=== PATIENT | female | born 2005 | race Caucasian/White ===

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

== ENCOUNTER 2024-01-25 10:50 | Emergency (ER) | payer OTHER, SELFPAY ==
[2024-01-25 10:58] VITALS: BP 110/66; PULSE 97; RESP 16; TEMP 36.3; O2SAT 100
--- NOTE | 2024-01-25 11:17 | ED.URI ---
HPI - URI/Sore Throat General Chief Complaint: Upper Respiratory Infection Stated Complaint: Sore Throat Time Seen by Provider: 01/25/24 11:18 Source: patient, RN notes reviewed and old records reviewed Mode of arrival: ambulatory Limitations: no limitations History of Present Illness HPI Narrative: 18 year old female who presents to [facility] with complaints of sore throat starting Thursday with increased pain today. Patient states she has taken ibuprofen and NyQuil for her symptoms without improvement. Patient reports that she was treated in October for cellulitis of her tonsil with antibiotics and steroid. Patient denies any known fevers, chills or sweats, no cough or any body aches, denies any sinus congestion or drainage. Patient states that she [facility] [place] [facility] [place] [place] and thought that may of caused her throat to be sore. MD elicited complaint: sore throat Pertinent past history: other (cellulitis of tonsil) Onset (ago): day(s) (2) Consistency: constant Pain scale (0-10): 9 Able to tolerate fluids by mouth: Yes Treatments prior to arrival: ibuprofen and other (nyQuil) Related Data Home Medications Medication Instructions Recorded Confirmed norgestimate 0.25 mg-ethinyl 1 tablet PO DAILY 10/29/21 01/25/24 estradiol 35 mcg tablet (Estarylla) Allergies Allergy/AdvReac Type Severity Reaction Status Date / Time amoxicillin AdvReac Mild HIVES Verified 01/25/24 10:51 clavulanic acid AdvReac Mild HIVES Verified 01/25/24 10:51 augmentin AdvReac Mild Hives Uncoded 01/25/24 10:51 Review of Systems Review of Systems: CONSTITUTIONAL: Denies malaise, chills, sweats, or fever. EYES: Denies visual changes, redness, or discharge. ENT: Reports no rhinorrhea, congestion, sinus pain, otalgia and positive for sore throat. CARDIOVASCULAR: Denies chest pain, palpitations, or edema. RESPIRATORY: Reports no cough.? Denies dyspnea. GASTROINTESTINAL: Denies abdominal pain, nausea, vomiting, diarrhea SKIN: Denies rash or itching. MUSCULOSKELETAL: Denies myalgia. NEUROLOGIC: Denies headache. All systems reviewed & are unremarkable except as noted in HPI and below PMFSH Past Medical History Medical History (Updated 01/26/24 @ 10:47 by Soco Barnett NP) Cellulitis of tonsil Situational anxiety Social History Social History Smoking status: Never smoker Second hand tobacco smoke exposure: No Alcohol intake: never Substance use: never Substance use type: does not use Living arrangements: with family Occupation/Education: student Gender identity (if verbalized by the patient): Female Sexual Orientation (if Verbalized by the Patient): Straight or Heterosexual Spiritual care concerns: No Agree to blood products: Yes Comments At time of signature, agree with nursing past medical, surgical, social and family history. There is no relevant family history pertinent to the presenting complaint Exam Narrative: GENERAL: Well-appearing, well-nourished, and in no acute distress. HEAD: Normocephalic EYES: PERRLA, conjunctivae clear ENT: Nares clear, turbinates edematous and erythematous, clear discharge. Mucous membranes moist. TM pearly castaneda with dull light reflex bilaterally; no tragal tenderness. Oropharynx erythematous without lesions. Tonsils red enlarged and with white pus pockets on left tonsil, no drooling, no hoarseness, no trismus, uvula midline.painful swallowing NECK: Supple. lymphadenopathy CHEST: Clear to auscultation, breath sounds equal. No wheezing, rhonchi, rales, or stridor. No respiratory distress, speaks in full sentences.SAO2 100% on room air HEART: Regular rate and rhythm. No murmur heard. SKIN: Warm, dry, no rash. NEURO: Alert and oriented x3. PSYCH: Normal mood and affect Course Course Emergency Course: Patient is aware of diagnosis, understands and agrees to treatment plan.? Anticipat
== END 2024-01-25 11:35 | disposition home or self-care (01) ==
PROVIDERS: Emergency Provider Registered Nurse; PCP Family Medicine Adolescent Medicine
DX: J03.90 Acute tonsillitis, unspecified (principal)
CPT/HCPCS: 87081; 87880; 99213; G0463

== ENCOUNTER 2024-05-04 08:09 | Emergency (ER) | payer OTHER, SELFPAY ==
--- NOTE | 2024-05-04 08:16 | ED.URI ---
HPI - URI/Sore Throat General Chief Complaint: Upper Respiratory Infection Stated Complaint: sore throat Time Seen by Provider: 05/04/24 08:17 Source: patient Mode of arrival: ambulatory Limitations: no limitations History of Present Illness HPI Narrative: Marlon is a 19-year-old female patient presenting to the clinic today with complaints of sore throat, nasal congestion, and cough. Symptoms have been going on for 3 days. She denies any fever, chills, or body aches. States the pain is worse on the right side of her throat. MD elicited complaint: sore throat and nasal congestion Related Data Home Medications Medication Instructions Recorded Confirmed norgestimate 0.25 mg-ethinyl 1 tablet PO DAILY 10/29/21 05/04/24 estradiol 35 mcg tablet (Estarylla) Allergies Allergy/AdvReac Type Severity Reaction Status Date / Time amoxicillin Allergy Mild HIVES Verified 05/04/24 08:22 clavulanic acid Allergy Mild HIVES Verified 05/04/24 08:22 augmentin Allergy Mild Hives Uncoded 05/04/24 08:22 Review of Systems Review of Systems: Pertinent positives per HPI. Patient denies any fever, chills, rash, headache, visual changes, dizziness, shortness of breath, chest pain, palpitations, nausea, vomiting, diarrhea, constipation, abdominal pain, or any urinary issues. PMFSH Past Medical History Medical History (Updated 05/04/24 @ 08:33 by Barak Owens APRN) Cellulitis of tonsil Situational anxiety Social History Social History Smoking status: Never smoker Second hand tobacco smoke exposure: No Alcohol intake: never Substance use: never Substance use type: does not use Living arrangements: with family Occupation/Education: student Gender identity (if verbalized by the patient): Female Sexual Orientation (if Verbalized by the Patient): Straight or Heterosexual Spiritual care concerns: No Agree to blood products: Yes Comments At the time of my signature, I reviewed and agree with the nursing past medical, surgical, social, and family history. There is no relevant family history pertinent to the patient complaint. Exam Narrative: General: Well-developed, well nourished, in no apparent distress Head: Normocephalic, atraumatic Eyes: Pupils equally round and reactive to light bilaterally, EOM intact, sclera and conjunctive clear, no discharge, lids normal Ears: TMs intact and clear, ear canals clear, no drainage, grossly hearing normal. Nose: Nares patent, no discharge, no inflammation, no sinus tenderness. Mouth: Oral pharynx mildly red with right tonsil mildly enlarged without lesions or masses, good dentition, MMM. Neck: Supple, trachea midline, no enlargement of anterior or posterior cervical nodes, no thyroid masses or goiter palpable. Cardio: Regular rate and rhythm, s1 and s2 normal, no murmur appreciated. Resp: Clear to auscultation bilaterally, no rhonchi, rales, wheezing or rubs Course Course Emergency Course: Portions of this record may have been created with voice recognition software. Level of Care: Express Care Visit Vital Signs Vital signs: Vital Signs Temperature 36.3 C L 05/04/24 08:27 Pulse Rate 79 05/04/24 08:27 Respiratory Rate 16 05/04/24 08:27 Blood Pressure 98/81 L 05/04/24 08:27 Pulse Oximetry 100 05/04/24 08:27 Oxygen Delivery Room Air 05/04/24 08:27 Temperature 36.3 C L 05/04/24 08:27 Pulse Rate 79 05/04/24 08:27 Respiratory Rate 16 05/04/24 08:27 Blood Pressure 98/81 L 05/04/24 08:27 Pulse Oximetry 100 05/04/24 08:27 Oxygen Delivery Room Air 05/04/24 08:27 Vital signs reviewed MDM - URI/Sore Throat MDM Narrative Medical decision making narrative: At the time of visit patient is resting comfortably on the exam table. Patient appears to be nontoxic. Labs: Strep test was negative. We will send strep for culture. Plan: I suspect patient santiago
[2024-05-04 08:27] VITALS: BP 98/81; PULSE 79; RESP 16; TEMP 36.3; O2SAT 100
== END 2024-05-04 08:36 | disposition home or self-care (01) ==
PROVIDERS: Emergency Provider Nurse Practitioner Family
DX: J02.9 Acute pharyngitis, unspecified (principal)
CPT/HCPCS: 87081; 87880; 99213; G0463

== ENCOUNTER 2024-10-10 18:46 | Emergency (ER) | payer OTHER, SELFPAY ==
--- NOTE | ~2024-10-10 | XR_ITS ---
EXAMINATION: XR chest 2V DATE: 10/10/2024 19:06 INDICATION: Chest pain. TECHNIQUE: Frontal and lateral views of the chest were obtained. COMPARISON: None. FINDINGS: There is no pneumonia, pleural effusion, or pneumothorax. The heart size is normal. Pectus excavatum is noted. IMPRESSION: 1. No acute cardiopulmonary disease. Reviewed, dictated and finalized at location A. [employer]
--- NOTE | 2024-10-10 18:48 | ECG_ITS ---
Test Date: 2024-10-10 19:01:37 Measurements Intervals [place] Rate: 99 P: 131 MN: 174 QRS: 266 QRSD: 88 T: -18 QT: 353 QTc: 455 Interpretive Statements SINUS RHYTHM POSSIBLE RIGHT VENTRICULAR CONDUCTION DELAY BORDERLINE T WAVE ABNORMALITY- ANTERIOR LEADS BASELINE ARTIFACT- I, II, III, AVR, AVF, V1, V3-V6 BORDERLINE ECG No previous ECG available for comparison Electronically Signed On 10-11-2024 05:50:29 SPECIAL EDUCATION SECRETARY by Ashutosh Monk D.O.
[2024-10-10 18:50] VITALS: BP 135/80; PULSE 104; RESP 16; TEMP 36.4; O2SAT 97
[2024-10-10 19:09] LABS: Basophils Absolute Auto 0.1 K/mm3 (0.0-0.1); Basophils Percent Auto 0.4 % (0.2-1.2); Eosinophils Absolute Auto 0.1 K/mm3 (0-0.3); Eosinophils Percent Auto 0.4 % (0-4.4); Hematocrit 41.6 % (37.0-47.0); Immature Granulocyte Absolute 0.06 K/mm3 (0.00-0.031); Immature Granulocyte Percent A 0.4 % (0-0.5); Lymphocytes Absolute Auto 2.68 K/mm3 (0.9-3.2); Lymphocytes Percent Auto 16.5 % (18.3-44.2); Mean Corpuscular HGB Conc 33.7 g/dl (32-36); Mean Corpuscular Volume 89.1 fl (80-100); Mean Platelet Volume 11.3 fl (7.4-10.4); Monocytes Absolute Auto 0.7 K/mm3 (0.1-0.6); Monocytes Percent Auto 4.1 % (2.6-8.5); Neutrophils Absolute Auto 12.8 K/mm3 (1.3-6.7); Neutrophils Percent Auto 78.2 % (45.5-73.1); Platelet Count Result 320 k/mm3 (150-375); Red Blood Count 4.67 M/mm3 (4.2-5.4); Red Cell Distribution Width 12.2 % (11.5-14.5); White Blood Count 16.3 K/mm3 (4.5-10.0)
[2024-10-10 19:21] LABS: Alanine Aminotransferase 23 U/L (6-35); Albumin Level 4.4 g/dL (3.5-5.1); Alkaline Phosphatase 73 U/L (38-126); Anion Gap 11 mmol/L (4-12); Aspartate Amino Transferase 30 U/L (14-36); Bilirubin,Total 1.2 mg/dL (0.2-1.3); Blood Urea Nitrogen 16 mg/dL (7-17); Calcium 9.1 mg/dL (8.4-10.2); Carbon Dioxide 26 mmol/L (22-30); Chloride 100 mmol/L (98-107); Estimated CRCL calculation 83 ml/min; Estimated Glomerular Filt Rate > 60; Glucose 111 mg/dL (65-110); Lipase 43 U/L (23-300); Potassium 3.4 mmol/L (3.4-5.0); Sodium 137 mmol/L (137-145)
[2024-10-10 19:32] LABS: Troponin I < 0.012 ng/mL (0.000-0.034)
[2024-10-10 20:08] LABS: INR 0.9; Prothrombin Time 12.9 Seconds (11.1-14.7)
[2024-10-10 20:09] LABS: Partial Thromboplastin Time 26.4 Seconds (22.3-36.8)
[2024-10-10 23:46] VITALS: PULSE 103
[2024-10-10 23:47] VITALS: BP 123/87; PULSE 94; RESP 12; O2SAT 100
[2024-10-11 00:13] LABS: Troponin I < 0.012 ng/mL (0.000-0.034)
--- NOTE | 2024-10-11 00:57 | ED.CHESTPAIN ---
HPI - Chest Pain General Chief Complaint: Chest Pain Stated Complaint: chest tightness Time Seen by Provider: 10/10/24 23:49 History of Present Illness HPI narrative: 19-year-old female with no past medical history presents to emergency department for chest pain. Patient states the chest pain started earlier today while she was at work. 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 Patient states she was stressed out at her new job today. She states the pain is throughout the anterior aspect of her chest wall and describes it as a ?bruise?. States it is worse when she presses on her chest. She is also tearful and states she is concerned that it may be secondary to anxiety. She notes that her mother unfortunately 1 month ago from COPD and cardiac arrest the patient is concerned she may have COPD. She states she smokes marijuana and a vape pen. She does report associated shortness of breath, denies hemoptysis, lower extremity edema, recent surgeries or hospitalizations. She is reporting a cough. Related Data Allergies Allergy/AdvReac Type Severity Reaction Status Date / Time amoxicillin Allergy Mild HIVES Verified 10/10/24 23:49 clavulanic acid Allergy Mild HIVES Verified 10/10/24 23:49 augmentin Allergy Mild Hives Uncoded 10/10/24 23:49 Review of Systems Review of Systems: All systems reviewed & are unremarkable except as noted in HPI and below PMFSH Past Medical History Medical History Situational anxiety Social History Social History Smoking status: Never smoker Second hand tobacco smoke exposure: No Alcohol intake: never Substance use: never Substance use type: does not use Living arrangements: with family Occupation/Education: student Gender identity (if verbalized by the patient): Female Sexual Orientation (if Verbalized by the Patient): Straight or Heterosexual Spiritual care concerns: No Agree to blood products: Yes Exam Narrative: GENERAL: Anxious-appearing, well-nourished, and in no acute distress. HEAD: Normocephalic, atraumatic. EYES: EOMI. ENT: Nares clear, no rhinorrhea or epistaxis. Mucous membranes moist. NECK: Supple. CHEST: Clear to auscultation. No respiratory distress. Diffuse tenderness to chest wall on palpation HEART: Regular rate and rhythm. No murmur heard. Normal peripheral pulses. ABDOMEN: Soft, nontender, nondistended, normal active bowel sounds. EXTREMITIES: Normal range of motion. No edema. Negative Homans bilaterally SKIN: Warm, dry, no rash. NEURO: No focal deficits. Alert and oriented x3 Course Vital Signs Vital signs: Vital Signs Temperature 97.5 F L 10/10/24 18:50 Pulse Rate 104 H 10/10/24 18:50 Respiratory Rate 16 10/10/24 18:50 Blood Pressure 135/80 10/10/24 18:50 Pulse Oximetry 97 10/10/24 18:50 Oxygen Delivery Room Air 10/10/24 18:50 Temperature 97.5 F L 10/10/24 18:50 Pulse Rate 94 10/10/24 23:47 Respiratory Rate 12 10/10/24 23:47 Blood Pressure 123/87 10/10/24 23:47 Pulse Oximetry 100 10/10/24 23:47 Oxygen Delivery Room Air 10/10/24 23:47 MDM - Chest Pain MDM Narrative Medical decision making narrative: 19-year-old female presents to the emergency department for chest pain that started today. Pain started while patient was at her 1st day of her new job. Patient is also endorsing anxiety about her mother passing away 1 month ago. She is tearful on exam. Chest pain is reproducible with palpation. Vitals with mild tachycardia 104, otherwise unremarkable. EKG shows sinus rhythm with rate of 99 ppm, normal TN interval, normal QRS duration, normal QTC, no ischemic changes. Troponin is undetectable x2. Chest x-ray shows no acute cardiopulmonary findings. Lipase is normal. D-dimer normal, wells score is low risk. Patient updated on workup. Symptoms are atypical in nature and consistent with costochondritis and anxiety. She is prescribed hydroxyzine for anxiety which I encouraged her to take p.r.n.. Will provide NSAIDs for costochondritis. Discussed strict ED return precautions. She is agreeable to plan verbalized understanding. Discharged in stable condition. Lab Data 10/10/24 18:58 10/10/24 18:58 Labs: Lab Results 10/10/24 10/10/24 10/11/24 Range/Units 18:58 23:46 00:07 WBC 16.3 H (4.5-10.0) K/mm3 RBC 4.67 (4.2-5.4) M/mm3 Hgb 14.0 (12.0-15.0) g/dL Hct 41.6 (37.0-47.0) % MCV 89.1 (80-100) fl MCH 30.0 (26-34) pg MCHC 33.7 (32-36) g/dl RDW 12.2 (11.5-14.5) % Plt Count 320 D (150-375) k/mm3 MPV 11.3 H (7.4-10.4) fl Immature Gran % (Auto) 0.4 (0-0.5) % Neut % (Auto) 78.2 H (45.5-73.1) % Lymph % (Auto) 16.5 L (18.3-44.2) % [place] % (Auto) 4.1 (2.6-8.5) % Eos % (Auto) 0.4 (0-4.4) % Baso % (Auto) 0.4 (0.2-1.2) % Lymph # (Auto) 2.68 (0.9-3.2) K/mm3 [place] # (Auto) 0.7 H (0.1-0.6) K/mm3 Eos # (Auto) 0.1 (0-0.3) K/mm3 Baso # (Auto) 0.1 (0.0-0.1) K/mm3 Abs Immat Gran (auto) 0.06 H (0.00-0.031) K/mm3 Absolute Neuts (auto) 12.8 H (1.3-6.7) K/mm3 Absolute Nucleated RBC 0.000 (0.0-0.012) K/mm3 Nucleated RBC % 0.0 (0.0-0.2) % PT 12.9 (11.1-14.7) Seconds INR 0.9 APTT 26.4 (22.3-36.8) Seconds D-Dimer < 0.27 (<0.48) ug/mL Sodium 137 (137-145) mmol/L Potassium 3.4 (3.4-5.0) mmol/L Chloride 100 (98-107) mmol/L Carbon Dioxide 26 (22-30) mmol/L Anion Gap 11 (4-12) mmol/L BUN 16 D (7-17) mg/dL Creatinine 0.70 (0.7-1.0) mg/dL Estim Creat Clear Calc 83 ml/min Estimated GFR > 60 (59 - ) Glucose 111 H (65-110) mg/dL Calcium 9.1 (8.4-10.2) mg/dL Total Bilirubin 1.2 (0.2-1.3) mg/dL AST 30 (14-36) U/L ALT 23 (6-35) U/L Alkaline Phosphatase 73 (38-126) U/L Troponin I < 0.012 < 0.012 (0.000-0.034) ng/mL Total Protein 8.0 (6.3-8.2) g/dL Albumin 4.4 (3.5-5.1) g/dL Lipase 43 (23-300) U/L Discharge Plan Discharge Clinical Impression: Atypical chest pain Patient Disposition: Home, Self-Care Condition: Stable Instructions: Antibiotic Form, Chest Pain (ED) Additional Instructions: Your evaluated in the emergency department for chest pain. Your workup here is reassuring. Her symptoms are consistent with costochondritis and anxiety as discussed. Please take the hydroxyzine as needed for anxiety in the ibuprofen as needed for chest pain. Please follow-up with your primary care provider. Return to the emergency department if you develop worsening or changing symptoms. Prescriptions: New ibuprofen 800 mg tablet 800 mg PO TID PRN (Reason: pain) Qty: 20 0RF No Action norgestimate-ethinyl estradiol [Estarylla] 0.25-35 mg-mcg tablet 1 tablet PO DAILY Qty: 84 3RF Follow-up/Referrals: Lee Mendez MD [Primary Care Provider] -
[2024-10-11 01:48] LABS: D Dimer < 0.27 ug/mL (<0.48)
== END 2024-10-11 01:55 | disposition home or self-care (01) ==
PROVIDERS: Emergency Medicine; Emergency Provider Physician Assistant; PCP Family Medicine Adolescent Medicine
DX: R07.89 Other chest pain (principal); R94.31 Abnormal electrocardiogram [ECG] [EKG]
CPT/HCPCS: 36415; 71046; 80053; 83690; 84484; 85025; 85380; 85610; 85730; 93005; 99284